=== PATIENT | male | born 1950 | race Caucasian/White ===

== ENCOUNTER 2017-10-19 02:49 | Inpatient (IN) | END 2017-10-24 14:10 | DRG 193 ==

== ENCOUNTER 2018-07-24 20:22 | Inpatient (IN) | payer OTHER ==
[~2018-07-24] VITALS: Ht 172.7 cm; Wt 98.2 kg
[~2018-07-24 20:22] MED LIST: ADV10050 INHALATION; ALBU8.5H8 INH; ASPI-817 PO; ATOR40TA68 PO; NITR0.4T39 SL; NITR60OI TD; TIOT18CA INHALATION; UMEC1DIS PO
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
[2018-07-24] MEDS ORDERED: ALBUTEROL 0.083% (NEB) 2.5 MG/3 ML AMP INH STA (22:31)
[2018-07-24] MEDS ORDERED: ASPIRIN 325 MG TAB PO ONE (23:00)
[2018-07-24] MEDS ORDERED: DEXAMETHASONE 4 MG TAB PO ONE (23:00)
[2018-07-24] MEDS: IPRATROPIUM (NEB) 0.5 MG/2.5 ML AMP INH SCH (23:23)
[2018-07-24] MEDS ORDERED: ONDANSETRON 4 MG INJ IV PRN (23:30)
[2018-07-24] MEDS ORDERED: ALBUTEROL 0.083% (NEB) 2.5 MG/3 ML AMP HHN PRN (23:30)
[2018-07-24] MEDS ORDERED: NON-FORMULARY/PATIENT OWN MED (Umeclidinium Brm-Vilanterol Tr (Anoro Ellipta) 1 PUFF) PO SCH (23:30)
[2018-07-24] MEDS ORDERED: morphine 2 MG INJ IV PRN (23:30)
[2018-07-24] MEDS ORDERED: ACETAMINOPHEN 325 MG TAB PO PRN (23:30)
[2018-07-24] MEDS ORDERED: AZITHROMYCIN 500MG/NS (PMX) 250 ML IVPB ONE (23:30)
[2018-07-24] MEDS ORDERED: ALBUTEROL/IPRATROPIUM (NEB) 3 ML AMP HHN SCH (23:30)
[2018-07-24] MEDS: METHYLPREDNISOLONE 125 MG INJ IV SCH (23:54)
[2018-07-25] VITALS (12 sets, daily range): BP systolic 95–133; BP diastolic 52–63; PULSE 67–97; RESP 18–19; Ht 172.7 cm; Wt 98.2 kg
[2018-07-25] MEDS: ALBUTEROL/IPRATROPIUM (NEB) 3 ML AMP HHN SCH ×4 (01:13→20:14)
[2018-07-25] MEDS: morphine SULFATE/PF (2 MG/2 ML) SYG IV PRN ×2 (02:40→10:32)
[2018-07-25] MEDS: METHYLPREDNISOLONE 125 MG INJ IV SCH ×3 (05:31→21:12)
[2018-07-25] MEDS: ASPIRIN (EC) 81 MG TAB PO SCH (08:22)
[2018-07-25] MEDS: ENOXAPARIN 40 MG/0.4 ML SYG SC SCH (08:30)
[2018-07-25] MEDS: CEFTRIAXONE 1 GM/50 ML (PMX) 50 ML IVPB SCH (10:23)
[2018-07-25] MEDS: AZITHROMYCIN 500MG/NS (PMX) 250 ML IVPB SCH (10:24)
[2018-07-25] MEDS ORDERED: ALPRAZOLAM 0.5 MG TAB PO PRN (12:00)
[2018-07-25] MEDS: HYDROCODONE/APAP (5/325) TAB NGT PRN ×2 (13:50→18:08)
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
--- NOTE | 2018-07-25 16:13 | RADRPT ---
Echocardiogram Report Patient Name: LESTER PIEDRA Gender: Male Date: 1950 Study Date: 25-Jul-2018 Bone Char Puller: Valentina Salomon [facility] Location: [id number] Ref. Physician: MARIANA GLASGOW Quality: Technically Difficult Study Procedures: Transthoracic echocardiogram with complete 2D, M-Mode, and doppler examination. Indications: Chest Pain. 2D/M Mode Doppler Measurement Value Normal Ranges Measurement Value Normal Ranges LVIDd 2D 4.3 3.5 - 5.6 cm AV Peak Jan 1.6 m/sec LVIDs 2D 2.3 2.1 - 4.1 cm AV Peak PG 11.0 mmHg LVPWd 2D 1.2 0.6 - 1.1 cm LVOT Peak Jan 1.5 m/sec IVSd 2D 1.4 0.6 - 1.1 cm LVOT Peak PG 9.0 mmHg AoR Diam 2D 3.4 2.0 - 3.7 cm MV E Peak Jan 0.6 m/sec LA/Ao 2D 1 0 - 1 MV A Peak Jan 1.0 m/sec LA Dimen 2D 3.1 2.3 - 4.0 cm MV E/A 0.7 MV Decel Time 204 msec MV E/A 0.7 Findings Left Ventricle: Overall, normal left ventricular systolic function. Not all segments visualized. Normal left ventricular cavity size. Moderate concentric left ventricular hypertrophy. Ejection fraction is visually estimated at 55 %. Tissue Doppler/Mitral Doppler indices are consistent with impaired relaxation (Stage I diastolic dysfunction). Right Ventricle: Normal right ventricular size. Normal right ventricular systolic function. Left Atrium: The left atrium is normal in size. Right Atrium: The right atrium is normal in size. Mitral Valve: Normal appearance and function of the mitral valve with trace physiologic regurgitation. Aortic Valve: No significant aortic stenosis or insufficiency. Aortic cusps appear mildly calcified. Tricuspid Valve: Tricuspid valve not well visualized. There is trace tricuspid regurgitation. Pulmonic Valve: Normal pulmonic valve appearance. Pericardium: Normal pericardium with no significant pericardial effusion. Aorta: Normal aortic root. IVC: Dilated IVC with respiratory collapse consistent with elevated right atrial pressure. Conclusions Overall, normal left ventricular systolic function. Not all segments visualized. Normal left ventricular cavity size. Moderate concentric left ventricular hypertrophy. Ejection fraction is visually estimated at 55 %. Tissue Doppler/Mitral Doppler indices are consistent with impaired relaxation (Stage I diastolic dysfunction). Normal right ventricular size. Normal right ventricular systolic function. The left atrium is normal in size. The right atrium is normal in size. No significant valvular stenosis or regurgitation seen. Normal pericardium with no significant pericardial effusion. Electronically Signed By: Sylvain Soler 25-Jul-2018 16:12:16 -0800 Patient Name: LESTER PIEDRA Study Date: 25-Jul-2018 [id number]
[2018-07-25] MEDS ORDERED: HYDROmorphONE 1 MG/ML SYG IV PRN (18:30)
[2018-07-25] MEDS: HYDROmorphONE 0.5 MG/0.5 ML SYG IV PRN ×2 (18:37→22:10)
[2018-07-25] MEDS: METOPROLOL 25 MG TAB PO SCH (20:12)
[2018-07-25] MEDS ORDERED: ATORVASTATIN 40 MG TAB PO SCH (21:00)
[2018-07-25] MEDS: IPRATROPIUM (NEB) 0.5 MG/2.5 ML AMP INH SCH (22:31)
[2018-07-26] VITALS (11 sets, daily range): BP systolic 105–134; BP diastolic 58–78; PULSE 64–85; RESP 18–19
[2018-07-26] MEDS: ALBUTEROL/IPRATROPIUM (NEB) 3 ML AMP HHN SCH ×3 (01:08→13:48)
[2018-07-26] MEDS: HYDROmorphONE 0.5 MG/0.5 ML SYG IV PRN ×5 (02:42→19:55)
[2018-07-26] MEDS: METHYLPREDNISOLONE 125 MG INJ IV SCH ×2 (05:03→13:51)
[2018-07-26] MEDS: ASPIRIN (EC) 81 MG TAB PO SCH (08:00)
[2018-07-26] MEDS: METOPROLOL 25 MG TAB PO SCH (08:01)
[2018-07-26] MEDS: ENOXAPARIN 40 MG/0.4 ML SYG SC SCH (08:03)
[2018-07-26] MEDS: AZITHROMYCIN 500MG/NS (PMX) 250 ML IVPB SCH (08:41)
[2018-07-26] MEDS: CEFTRIAXONE 1 GM/50 ML (PMX) 50 ML IVPB SCH (10:14)
[2018-07-26] MEDS ORDERED: ACET325T33 PO (10:25)
[2018-07-26] MEDS ORDERED: METO-448 PO (10:25)
[2018-07-26] MEDS ORDERED: Ipratropium 0.02% (Neb) INH (10:25)
[2018-07-26] MEDS ORDERED: ALBU2.5V3 HHN (10:25)
[2018-07-26] MEDS ORDERED: ENOX40DI12 SC (10:25)
[2018-07-26] MEDS ORDERED: ARFORMOTEROL TARTRATE 15MCG/2 ML AMP NEB SCH (12:00)
--- NOTE | 2018-07-26 13:10 | CONS ---
DATE OF ADMISSION: 07/24/2018 DATE OF CONSULTATION: TYPE OF CONSULTATION: Pulmonary. REASON FOR CONSULT: Shortness of breath. Thank you, Dr. Soler, for this consultation. HISTORY OF PRESENT ILLNESS: This is a 68-year-old gentleman with extensive tobacco history. He stat es he quit smoking 3 months ago. He has been on supplemental O2. He came in with increasing shortne ss of breath, orthopnea, PND and was found to have marked hypoxemia with exertional dyspnea. He stat es he desaturated to the mid 70s on minimal exertion and has had difficulty completing full sentences . The patient states he has extensive history of COPD and has not seen a salt operator in quite some time. Denies any fever or chills. No chest pain or palpitations. He is visibly short of breath on examination today. PAST MEDICAL HISTORY: 1. Coronary artery disease and coronary artery bypass graft surgery. 2. COPD. 3. Home O2 dependent hypoxemic respiratory failure. 4. Morbid obesity and underlying sleep apnea. MEDICATIONS: Per chart. ALLERGIES: NONE. SOCIAL HISTORY: He is an ex-smoker. No alcohol. No history of drug use. FAMILY HISTORY: Noncontributory. REVIEW OF SYSTEMS: A 12-point review of systems was negative other than that mentioned above. PHYSICAL EXAMINATION: GENERAL: Moderately obese gentleman, talking in full and complete sentences, but visible dyspnea. VITAL SIGNS: Currently afebrile, pulse is 74, blood pressure 134/73, O2 saturation 96%, FiO2 of 3 li ters. NECK: Supple. No JVD or lymphadenopathy. CARDIAC: S1, S2. No added sounds or murmurs. CHEST: Diminished air entry bilaterally. ABDOMEN: Soft, nontender. No guarding or rebound. EXTREMITIES: No cyanosis, clubbing or edema. NEUROLOGIC: Grossly intact. No focal deficits. LABORATORIES: White count 8.4, hemoglobin 13.6, platelets of 216. Chemistry within normal limits. Troponin initially elevated at 0.125, now 0.107. INR was 0.82. DIAGNOSTIC DATA: EKG showed no acute ischemic changes. IMAGING: Chest x-ray suggests possible right lower lobe pneumonia. IMPRESSION AND PLAN: Acute on chronic hypoxemic respiratory failure, likely secondary to combination of: 1. Community-acquired pneumonia. 2. Chronic obstructive pulmonary disease exacerbation. 3. Possible acute on chronic diastolic dysfunction. The patient will require: 1. Continue steroid taper. 2. Bronchodilators. 3. Current antibiotics of Rocephin and azithromycin. 4. CT angiogram, rule out pulmonary embolism. 5. DVT and GI prophylaxis. 6. Outpatient sleep study and adjustment of bronchodilator treatment. Dictated By: JE ALVAREZ MD SV/PRASHANT Conf#: [id number] DID#: [id number] CC: MARIANA GLASGOW MD;*[facility]*
--- NOTE | 2018-07-26 13:11 | CONS ---
Date/Time of Note Date/Time of Note DATE: 07/26/18 TIME: 13:08 Assessment/Plan Assessment/Plan Assessment/Plan COPD exacerbation Mildly elevated troponin, trending down CAD with history of CABG Preserved ejection fraction Hypertension Obesity Home oxygen -Patient overall feeling better with less shortness of breath. He does tell me he does get hypoxic with saturations in the 70s at home with walking more than 20-30 feet. Denies any chest pain. Troponins are trending down. I did review patient's cardiac catheterization from 2010 with patent ASHBY to LAD, saphenous vein graft to obtuse marginal and occluded saphenous vein graft presumably to the PDA. With further discussion with the patient, he does admit to poor medication compliance. Will continue patient on aspirin, statin therapy, titrate beta-blockers heart rate and blood pressure permits. Patient undergoing pulmonary evaluation. Result Diagram: 07/26/18 0709 07/26/18 0709 Results 24hrs Laboratory Tests Test 07/26/18 07:09 White Blood Count 8.4 Red Blood Count 4.51 L Hemoglobin 13.6 L Hematocrit 41.0 L Mean Corpuscular Volume 90.9 Mean Corpuscular Hemoglobin 30.2 Mean Corpuscular Hemoglobin Concent 33.2 Red Cell Distribution Width 13.2 Platelet Count 216 Mean Platelet Volume 12.4 H Immature Granulocytes % 0.400 Neutrophils % 80.5 H Lymphocytes % 14.6 L Monocytes % 4.4 Eosinophils % 0.0 Basophils % 0.1 Nucleated Red Blood Cells % 0.0 Immature Granulocytes # 0.030 Neutrophils # 6.8 Lymphocytes # 1.2 Monocytes # 0.4 Eosinophils # 0.0 Basophils # 0.0 Nucleated Red Blood Cells # 0.0 Sodium Level 141 Potassium Level 3.8 Chloride Level 104 Carbon Dioxide Level 32 H Anion Gap 5 Blood Urea Nitrogen 19 Creatinine 0.50 L Est Glomerular Filtrat Rate mL/min > 60 Glucose Level 118 Calcium Level 9.7 Phosphorus Level 3.3 Magnesium Level 1.9 Total Bilirubin 0.2 Direct Bilirubin 0.00 Indirect Bilirubin 0.2 Aspartate Amino Transf (AST/SGOT) 34 Alanine Aminotransferase (ALT/SGPT) 22 Alkaline Phosphatase 60 Total Protein 6.3 Albumin 3.6 Globulin 2.70 Albumin/Globulin Ratio 1.33 Consultation Date/Type/Reason Admit Date/Time Jul 24, 2018 at 23:01 Initial Consult Date Type of Consult cv 24 HR Interval Summary Free Text/Dictation Feeling better today. Denies any chest pain or palpitations. Still with intermittent shortness of breath which has been going on for over 2 years Exam/Review of Systems Vital Signs Vitals Vital Signs Date Temp Pulse Resp B/P (MAP) Pulse Ox O2 O2 Flow FiO2 Time Delivery Rate 07/26/18 98.0 76 18 105/58 93 11:39 (74) 07/26/18 Nasal 2.0 08:44 Cannula Intake and Output 07/25/18 07/25/18 07/26/18 1515:00 23:00 07:00 IntakeIntake Total 250 ml 850 ml 400 ml OutputOutput Total 780 ml BalanceBalance 250 ml 70 ml 400 ml Exam Dyspneic with extensively speaking Constitutional: alert, oriented, obese Head: normocephalic Respiratory: other (Coarse breath sounds bilaterally, no wheezing) Cardiovascular: regular rate and rhythm, other (S1-S2 heard) Gastrointestinal: soft, non-tender, bowel sounds Extremities: edema (Trace) Medications Medications Current Medications Aspirin (Halfprin) 81 mg DAILY PO Last administered on 07/26/18at 08:00; Admin Dose 81 MG; Start 07/25/18 at 09:00 Atorvastatin Calcium (Lipitor) 40 mg QHS PO Last administered on 07/25/18at 20:12; Admin Dose 40 MG; Start 07/25/18 at 21:00 Miscellaneous Information 1 puff BID PO ; Start 07/24/18 at 23:30; Status UNV Methylprednisolone Sodium Succinate (Solu-Medrol) 60 mg Q8 IV Last administered on 07/26/18at 05:03; Admin Dose 60 MG; Start 07/24/18 at 23:30 Enoxaparin Sodium (Lovenox) 40 mg DAILY SC Last administered on 07/26/18at 08:03; Admin Dose 40 MG; Start 07/25/18 at 09:00 Acetaminophen (Tylenol Tab) 650 mg Q4H PRN PO pain/fever Last administered on 07/25/18at 16:07; Admin Dose 650 MG; Start 07/24/18 at 23:30 Ondansetron HCl (Zofran Inj) 4 mg Q4H PRN IV nausea; Start 07/24/18 at 23:30 Hydralazine HCl (Apresoline) 25 mg Q6H PRN PO sbp>160; Start 07/24/18 at 23:30 Azithromycin 250 ml @ 250 mls/hr DAILY IVPB Last administered on 07/26/18 08:41; Admin Dose 250 MLS/HR; Start 07/25/18 at 09:00 Albuterol/ Ipratropium (Duoneb) 3 ml Q6H RESP THERAPY HHN Last administered on 07/26/18 08:42; Admin Dose 3 ML; Start 07/25/18 at 02:00 Ceftriaxone Sodium 50 ml @ 100 mls/hr Q24H IVPB Last administered on 07/26/18 10:14; Admin Dose 100 MLS/HR; Start 07/25/18 at 10:00 Acetaminophen/ Hydrocodone Bitart ([place]ea (5/325)) 1 tab Q4H PRN NGT MODERATE PAIN LEVEL 4-6 Last administered on 07/25/18 18:08; Admin Dose 1 TAB; Start 07/25/18 at 12:00 Alprazolam (Xanax) 0.5 mg Q8H PRN PO ANXIETY Last administered on 07/25/18 13:50; Admin Dose 0.5 MG; Start 07/25/18 at 12:00 Metoprolol Tartrate (Lopressor) 12.5 mg BID PO Last administered on 07/26/18 08:01; Admin Dose 12.5 MG; Start 07/25/18 at 21:00 Hydromorphone HCl (Dilaudid) 0.5 mg Q3H PRN IV MODERATE PAIN LEVEL 4-6 Last administered on 07/26/18 11:30; Admin Dose 0.5 MG; Start 07/25/18 at 18:30 Hydromorphone HCl (Dilaudid) 1 mg Q4H PRN IV SEVERE PAIN LEVEL 7-10; Start 07/25/18 at 18:30 Arformoterol Tartrate (Brovana (Neb)) 2 ml BID RESP THERAPY NEB ; Start 07/26/18 at 12:00 Sylvain Soler DO Jul 26, 2018 13:11
[2018-07-26] MEDS ORDERED: SOD CHLORIDE 0.9% 100 ML ONE (15:02)
[2018-07-26] MEDS ORDERED: IOHEXOL 100 ML ONE (15:02)
[2018-07-26] MEDS ORDERED: METOPROLOL 25 MG TAB PO SCH (21:00)
--- NOTE | 2018-07-27 07:49 | DS ---
DATE OF ADMISSION: 07/24/2018 DATE OF DISCHARGE: 07/26/2018 DISCHARGE DIAGNOSES: 1. Acute chronic obstructive pulmonary disease exacerbation. 2. Right lower lobe pneumonia. 3. Coronary artery disease. 4. Status post coronary artery bypass graft. HOSPITAL COURSE: A 68-year-old male with COPD, presented to emergency room with complaint of shortne ss of breath and dyspnea on exertion. He was diagnosed with acute COPD exacerbation. The patient co ntinues to smoke heavily despite his underlying COPD. Chest x-ray revealed evidence of right lower l obe pneumonia. The patient was started on antibiotic therapy, respiratory treatments and steroids. His condition improved significantly. He is in a stable condition for transition to [facility] facility. The patient will benefit from physical therapy and continuing respiratory treatment. DISPOSITION: Discharge to [facility] facility. MEDICATIONS ON DISCHARGE: 1. Lipitor 40 mg at bedtime. 2. Metoprolol 12.5 mg b.i.d. 3. Z-Prince x5 days. 4. Lovenox 40 mg daily. 5. Prednisone 40 mg p.o. daily x3. 6. DuoNeb per nebulizer q.4 hours. FOLLOWUP: Follow up with PCP and pulmonary in 1 to 2 weeks. Dictated By: JORGE A BENEDICT/PRASHANT Conf#: [id number] DID#: [id number] CC: JE ALVAREZ MD; MARIANA GLASGOW MD;*[facility]*
== END 2018-07-26 20:09 | DRG 190 ==
LOC: E/R 20:22 → TEL 23:01 → CANRESERV 07-25 00:25
PROVIDERS: ADMIT Legal Medicine; ATTEND Legal Medicine
DX: J44.1 Chronic obstructive pulmonary disease with (acute) exacerbation (principal); J96.21 Acute and chronic respiratory failure with hypoxia; J18.9 Pneumonia, unspecified organism; J96.22 Acute and chronic respiratory failure with hypercapnia; J44.0 Chronic obstructive pulmonary disease with (acute) lower respiratory infection; I25.10 Atherosclerotic heart disease of native coronary artery without angina pectoris; I25.2 Old myocardial infarction; I10 Essential (primary) hypertension; R74.8 Abnormal levels of other serum enzymes; E66.9 Obesity, unspecified; Z68.32 Body mass index [BMI] 32.0-32.9, adult; Z95.1 Presence of aortocoronary bypass graft; Z87.891 Personal history of nicotine dependence; Z99.81 Dependence on supplemental oxygen; Z79.82 Long term (current) use of aspirin
CPT/HCPCS: 36415; 71045; 71275; 80053; 83735; 83880; 84100; 84484; 85025; 85610; 87070; 87400; 93005; 93306; 94640; 94664; J0456; J0696; J1170; J1650; J2274; J2930; Q9967